=== PATIENT | male | born 1960 | race Caucasian/White ===

== ENCOUNTER 2018-02-05 17:01 | Observation (INO) | payer OTHER ==
[2018-02-05] MEDS: ENOXAPARIN SODIUM SQ SCH (18:35)
[2018-02-05 18:57] LABS: Hematocrit 41.7 % (42-50); Hemoglobin 14.4 gm/dl (12.5-18.0); Mean Corpuscular Hemoglobin 30.4 pg (26-32); Mean Corpuscular Hgb Concent. 34.5 g/dl (32-36); Mean Platelet Volume 9.8 fl (6-9.5); Platelet Count 187 K/mm3 (150-450); Red Blood Count 4.74 M/mm3 (4.1-5.6); Red Cell Distribution Width 13.2 % (11.5-14.0); White Blood Count 10.7 K/mm3 (4.0-10.5)
[2018-02-05 19:12] LABS: INR 1.12 (0.8-3.0)
[2018-02-05 19:17] LABS: ALBUMIN 4.2 g/dL (3.5-5.0); ALKALINE PHOSPHATASE 64 U/L (38-126); ANION GAP 15.8 MEQ/L (5-15); BLOOD UREA NITROGEN 16 mg/dL (9-20); CHLORIDE 100 mmol/L (98-107); Calcium 9.3 mg/dL (8.4-10.2); Carbon Dioxide 28 mmol/L (22-30); Glucose 170 mg/dL (74-106); Potassium 3.9 mmol/L (3.5-5.1); SGOT/AST 20 U/L (17-59); SGPT/ALT 29 U/L (0-50); SODIUM 140 mmol/L (137-145); Total Protein 7.2 g/dL (6.3-8.2)
[2018-02-05] MEDS: TYLENOL 325 MG PO PRN (20:02)
[2018-02-05] MEDS: NovoLOG Insulin SQ PRN (21:24)
[2018-02-06 04:02] VITALS: O2SAT 92
[2018-02-06] MEDS: TYLENOL 325 MG PO PRN (04:04)
[2018-02-06] MEDS ORDERED: PROVENTIL COMMON CANISTER IH PRN (07:00)
[2018-02-06] MEDS ORDERED: Advair Hfa 230/21 Mcg COMMON CANISTER IH SCH (07:00)
[2018-02-06] MEDS ORDERED: Spiriva 18 Mcg/Cap Inhaler IH ONE (07:03)
[2018-02-06 07:16] VITALS: PULSE 77
[2018-02-06] MEDS ORDERED: Glucotrol 5 MG PO SCH (07:30)
[2018-02-06] MEDS ORDERED: Glucotrol 10 MG PO SCH (07:30)
[2018-02-06 07:33] VITALS: BP 123/58
[2018-02-06] MEDS: NovoLOG Insulin SQ PRN (07:50)
--- NOTE | 2018-02-06 08:33 | XRAY ---
Indication: Right leg pain for days. Two-dimensional sonogram and color Doppler imaging of the major venous vessels of the right leg was performed. Comparison: None There is nonoccluding thrombosis in the peroneal vein. Additional thrombi seen in the greater saphenous vein below the knee. No thrombus seen in the remaining deep venous vessels of the right leg. Patent veins demonstrate normal compressibility and normal venous waveforms. Impression: Nonoccluding DVT in the peroneal vein. Also thrombi in the greater saphenous vein. Comment: Preliminary report was given.
[2018-02-06] MEDS: ENOXAPARIN SODIUM SQ SCH (09:21)
[2018-02-06] MEDS ORDERED: Protonix 40MG Tablet PO SCH (10:00)
[2018-02-06] MEDS ORDERED: Januvia 50 MG PO SCH (10:00)
[2018-02-06] MEDS ORDERED: Zestril 20 MG PO SCH (10:00)
[2018-02-06] MEDS ORDERED: hydroDIURIL 25 MG PO SCH (10:00)
[2018-02-06] MEDS ORDERED: ZOCOR 20MG PO SCH (10:00)
[2018-02-06] MEDS ORDERED: Spiriva 18 Mcg/Cap Inhaler IH SCH (10:00)
[2018-02-06] MEDS ORDERED: NON-FORMULARY ITEM (Lisinopril/Hydrochlorothiazide [Lisinopril-Hctz 20-12.5 Mg Tab] 1 TAB) PO SCH (10:00)
[2018-02-06] MEDS ORDERED: Singulair 10 MG PO SCH (10:00)
--- NOTE | 2018-02-07 10:43 | SSS ---
ADMISSION DIAGNOSES 1) Right lower extremity distal deep venous thrombosis. 2) Superficial venous thrombosis of right lower extremity. 3) Chronic obstructive pulmonary disease. 4) Diabetes mellitus type 2. DISCHARGE DIAGNOSES: 1) RIGHT LOWER EXTREMITY DISTAL DEEP VENOUS THROMBOSIS. 2) SUPERFICIAL VENOUS THROMBOSIS OF RIGHT LOWER EXTREMITY. 3) CHRONIC OBSTRUCTIVE PULMONARY DISEASE. 4) DIABETES MELLITUS TYPE 2. HISTORY OF PRESENT ILLNESS: This is a 57 year old patient who presented to the clinic on 02/05/2018 complaining of swelling and right lower limb pain. He was sent over to the hospital to have a Doppler done and was found to have a distal deep venous thrombosis of his right lower extremity as well as superficial venous thrombosis as well. He had reported that he had leg swelling that started two weeks ago but then this past Monday and Monday it had gotten red. He had multiple flea bites on his lower extremity about three weeks ago. He has not had any prolonged car rides. No history of deep venous thrombosis or pulmonary embolism in the past. He reports his mother had a deep venous thrombosis in the past. He also had a cough for four weeks that was dry and nonproductive. PAST MEDICAL HISTORY: Chronic obstructive pulmonary disease although he has been a lifetime nonsmoker. Diabetes mellitus type 2 diagnosed in 2006. Hypertension. PAST SURGICAL HISTORY: Colonoscopy 2015 that was normal. Upper GI June [address] Crum that revealed chronic gastritis. REVIEW OF SYSTEMS: He denied any nausea or vomiting. No diarrhea. No chest pain. He has had some shortness of breath with exertion. He had headache last night he reports due to not drinking his coffee and not eating well yesterday. Otherwise review of systems is negative, MEDICATIONS: Advair Diskus 500/50 mg 1 puff twice a day, fluticasone 50 mcg 1 spray in each nostril daily, Glipizide 10 mg daily, Januvia 100 mg daily, lisinopril/hydrochlorothiazide 20/12.5 mg 1 tablet p.o. daily, Metformin 1,000 mg p.o. b.i.d., Singulair 10 mg daily, omeprazole 40 mg daily, Pravastatin 40 mg daily, Spiriva 1 puff daily, Ventolin 2 puffs every four hours as needed. ALLERGIES: NKDA. SOCIAL HISTORY: He is and lives with his . He denies any tobacco or alcohol use. FAMILY HISTORY: His mother had diabetes, glaucoma and history of deep venous thrombosis and his father had diabetes. PHYSICAL EXAMINATION: VITAL SIGNS: Temperature current 98.3F, temperature max 100.2F, heart rate 77 to 98 currently 77, respiratory rate 16 to 22, blood pressure 123 to 150 over 61 to 83, weight 126 kg. Oxygen saturation 92 to 97% on room air. GENERAL: The patient is a pleasant talkative man sitting up in no acute distress. CVS: He has a regular rate and rhythm. No murmurs, gallops or rubs. CHEST: Clear to auscultation without crackles. He had a few scattered wheezes, equal breath sounds. ABDOMEN: Soft, nontender, nondistended with normal bowel sounds. EXTREMITIES: His right lower leg was swollen with some mild erythema along his anterior tibia. He has a few healing insect bites. No open sores. Left lower extremity without any clubbing, cyanosis or edema. LABORATORY DATA AND TESTS: White blood cell count 10.7. Glucose 170. Otherwise BMP, CBC and international normalized ratio within normal limits. His venous Doppler was read as non-occluding deep venous thrombosis in the perineal vein and also thrombi in the greater saphenous vein. HOSPITAL COURSE: 1) DISTAL DEEP VENOUS THROMBOSIS OF RIGHT LOWER EXTREMITY: He was started on Lovenox 1 mg/kg subcutaneously every 12 hours. He received 2 doses of this. Discharge planning was consulted and his insurance did cover Xarelto so he was given a script for Xarelto 15 mg p.o. b.i.d. for 21 days to be followed 20 mg daily after that. He was instructed to start the Xarelto this evening. I had a lengthy discussion with him about anticoagulation including the risk and benefits of Xarelto versus Coumadin. The patient understands that with any anticoagulation he should not be climbing that there is a risk for GI bleeding or blood in the urine to go to the emergency room or come to the office right away if something like that would happen. The patient was aware that there is no direct reversal for Xarelto. I also discussed the risks and benefits of Coumadin and opted to try the Xarelto. I plan to refer him to drum reel cutter as an outpatient for testing for possible genetic causes. He began anticoagulation for three months. 2) SUPERFICIAL VENOUS THROMBOSIS OF RIGHT LOWER EXTREMITY: I believe this is what is causing the redness in the skin. It has improved some with anticoagulation. 3) CHRONIC OBSTRUCTIVE PULMONARY DISEASE: This was stable during his hospitalization and he reports he is breathing easily at the time of discharge. 4) DIABETES MELLITUS TYPE 2: He was continued on all of his home medications except Metformin during his hospital stay but this was resumed at discharge. DISPOSITION: The patient was discharged to home in good condition. DISCHARGE MEDICATIONS: Please see the discharge order. FOLLOW UP: He is to follow up with me in the clinic in one week.
== END 2018-02-06 10:43 | disposition home or self-care (01) ==
LOC: LAB 17:01 → MED SURG 17:52
PROVIDERS: ADMIT Internal Medicine; ATTEND Internal Medicine
DX: I82.4Z1 Acute embolism and thrombosis of unspecified deep veins of right distal lower extremity (principal); J44.9 Chronic obstructive pulmonary disease, unspecified; E11.9 Type 2 diabetes mellitus without complications; Z79.84 Long term (current) use of oral hypoglycemic drugs; Z79.899 Other long term (current) drug therapy
CPT/HCPCS: 36415; 80053; 85027; 85610; 93268; 93971; 94150; 94640; 94760; J1650; A9270-GY; G0378

== ENCOUNTER 2019-03-23 17:28 | Emergency (ER) | payer OTHER ==
--- NOTE | 2019-03-23 17:33 | ERPHSYRPT ---
- History of Present Illness Time Seen by Provider: 03/23/19 17:32 Source: patient, family Exam Limitations: no limitations Physician History: 58 y/o diabetic, obese white male on xarelto for tx of rle dvt in the past, presents with swelling, tenderness and redness left knee. pt did injure his left hallman this week. pt denies soa and denies cp. Method of Injury: fell Occurred: last week Quality: aching Severity of Pain-Max: mild Severity of Pain-Current: mild Lower Extremities Pain: leg: left Modifying Factors: Improves With: movement Allergies/Adverse Reactions: No Known Drug Allergies Allergy (Verified 03/23/19 17:52) Home Medications: Glipizide 10 mg [Glucotrol 10 MG] 10 mg PO DAILY 12/25/14 [History] Metformin HCl 500 mg [Glucophage 500 MG] 1,000 mg PO BID 12/25/14 [History ] Albuterol Sulfate [Proventil Hfa] 2 puff IH Q4HPRN PRN 01/02/15 [History] Fluticasone/Salmeterol [Advair 250-50 Diskus] 1 puff IH DAILY 01/02/15 [History] Lisinopril/Hydrochlorothiazide [Lisinopril-Hctz 20-12.5 mg Tab] 1 tab PO DAILY 02/05/18 [History] Montelukast Sodium 10 mg [Singulair 10 MG] 10 mg PO DAILY 02/05/18 [History] Omeprazole 20 MG [Prilosec 20 mg] 40 mg PO BID 02/05/18 [History] Pravastatin Sodium 40 mg PO DAILY 02/05/18 [History] Sitagliptin Phosphate 50 MG [Januvia 50 MG] 100 mg PO DAILY 02/05/18 [ History] Tiotropium [place] Inhaler [Spiriva 18 Mcg/Cap Inhaler] 1 puff IH DAILY [History] - Review of Systems Constitutional: No Symptoms Eyes: No Symptoms Ears, Nose, & Throat: No Symptoms Respiratory: No Symptoms Cardiac: No Symptoms Abdominal/Gastrointestinal: No Symptoms Genitourinary Symptoms: No Symptoms Musculoskeletal: Joint Redness, Joint Pain, Joint Swelling Skin: No Symptoms Neurological: No Symptoms Psychological: No Symptoms Endocrine: No Symptoms Hematologic/Lymphatic: No Symptoms Immunological/Allergic: No Symptoms All Other Systems: Reviewed and Negative - Past Medical History Neurological History: No Pertinent History ENT History: No Pertinent History Cardiac History: Hypertension Respiratory History: Asthma Endocrine Medical History: Diabetes Type II Musculoskeletal History: No Pertinent History GI Medical History: No Pertinent History History: No Pertinent History Psycho-Social History: No Pertinent History Male Reproductive Disorders: No Pertinent History - Past Surgical History Past Surgical History: Yes Neuro Surgical History: No Pertinent History Cardiac: No Pertinent History Respiratory: No Pertinent History Gastrointestinal: No Pertinent History Genitourinary: No Pertinent History Musculoskeletal: No Pertinent History Male Surgical History: No Pertinent History Other Surgical History: tonsil - Social History Smoking Status: Never smoker Exposure to second hand smoke: No Drug Use: none - Nursing Vital Signs Nursing Vital Signs: Initial Vital Signs Temperature 98.3 F 03/23/19 17:40 Pulse Rate 73 03/23/19 17:40 Respiratory Rate 20 03/23/19 17:40 Blood Pressure 175/96 03/23/19 17:40 O2 Sat by Pulse Oximetry 95 03/23/19 17:40 Pain Scale Pain Intensity 7 - Physical Exam General Appearance: no apparent distress Eyes, Ears, Nose, Throat Exam: normal ENT inspection, moist mucous membranes Neck Exam: normal inspection, non-tender, supple, full range of motion Cardiovascular/Respiratory Exam: chest non-tender Gastrointestinal/Abdominal Exam: non-tender Back Exam: normal inspection, normal range of motion, No CVA tenderness, No vertebral tenderness Hips Exam: bilateral: non-tender, normal inspection, normal range of motion, no evidence of injury Legs Exam: right leg: non-tender, normal inspection, normal range of motion, no evidence of injury, left leg: soft tissue tenderness, swelling, other ( pretibial eschar) Knees Exam: right knee: non-tender, normal inspection, normal range of motion, no evidence of injury, left knee: soft tissue tenderness, swelling Ankle Exam: bilateral ankle: non-tender, normal inspection, normal range of motion, no evidence of injury Foot Exam: bilateral foot: non-tender, normal inspection, normal range of motion , no evidence of injury Neuro/Tendon Exam: normal sensation, normal motor functions, normal tendon functions, responds to pain Mental Status Exam: alert, oriented x 3, cooperative Skin Exam: other (mild redness left ant knee ) SpO2 Interpretation: normal O2 Delivery: Room Air Ordered Tests: Active Orders 24 hr Category Date Time Status KNEE (3 VIEWS) Stat Exams 03/23/19 18:33 Ordered Medication Summary Discontinued Medications Generic Name Dose Route Start Last Admin Trade Name Ollie PRN Reason Stop Dose Admin Ceftriaxone Sodium 1,000 mg 03/23/19 18:32 Rocephin 1000 Mg Inj IM 03/23/19 18:33 STAT ONE Trimethoprim/Sulfamethoxazole 1 tab 03/23/19 18:33 Bactrim Ds Tablet PO 03/23/19 18:34 STAT ONE - Progress Progress: re-examined Progress Note: 03/23/19 18:29 pt, spouse and myself had a long discussion regarding tx plan. i dx pt with ant left knee cellulitis. pt will receive rocephin im injection and oral bactrim ds. however, pt and spouse would like to have an xray of left knee and evaluation for dvt in left leg. pt is anticoagulated on xarelto for tx and prevention of dvt. will order outpt left lower ext venous doppler for 03/25/19. they agree with this plan. 03/23/19 18:56 xray left knee-no acute fx or dislocation Counseled pt/family regarding: diagnosis, need for follow-up, rad results - Departure Departure Disposition: Home Clinical Impression: Cellulitis Condition: Stable Critical Care Time: No Referrals: PARISH COLLAZO [Primary Care Provider] - Additional Instructions: take medications as prescribed. keep appointment on Monday March 25, 2019 for venous doppler of left leg. Prescriptions: Smz/Tmp Ds Tablet [Bactrim Ds Tablet] 1 udtab PO BID #14 tablet
[2019-03-23] MEDS ORDERED: Rocephin 1000 MG INJ IM ONE (18:32)
[2019-03-23] MEDS ORDERED: BACTRIM DS TABLET PO ONE ×2 (18:33→18:57)
[2019-03-23] MEDS ORDERED: Rocephin 1000 MG INJ ONE (18:57)
[2019-03-23] MEDS ORDERED: XYLOCAINE 1% HCL 20 ML MDV ONE (18:57)
[2019-03-23] MEDS ORDERED: NORCO 5/325 MG PO ONE (19:24)
[2019-03-23] MEDS ORDERED: NORCO 5/325 MG ONE (19:26)
[2019-03-23 19:31] VITALS: PULSE 70
[2019-03-23 19:33] VITALS: BP 172/88; O2SAT 98
--- NOTE | 2019-03-24 08:44 | XRAY ---
Indication: Pain and swelling following injury. Comparison: None 3 views of the left knee demonstrates anterior soft tissue swelling, mild medial joint space narrowing, and tiny anterior lower leg soft tissue calcified granulomas. No other bony, articular, or soft tissue abnormalities.
== END 2019-03-23 19:32 | disposition home or self-care (01) ==
LOC: ED 17:28
DX: L03.116 Cellulitis of left lower limb (principal); Z86.718 Personal history of other venous thrombosis and embolism; Z79.01 Long term (current) use of anticoagulants; E11.9 Type 2 diabetes mellitus without complications; Z79.4 Long term (current) use of insulin; S89.92XA Unspecified injury of left lower leg, initial encounter; W19.XXXA Unspecified fall, initial encounter
CPT/HCPCS: 73562; 96372; 99284; J0696; A9270-GY

== ENCOUNTER 2023-01-11 08:04 | Emergency (ER) | payer OTHER ==
--- NOTE | 2023-01-11 08:26 | ERPHSYRPT ---
- History of Present Illness Time Seen by Provider: 01/11/23 08:24 Source: patient Exam Limitations: no limitations Patient Subjective Stated Complaint: pt here for a food bolus, he states he as pot roast stuck since last night, Triage Nursing Assessment: pt alert, walked in, resp easy, skin w/d/p, no drooling, able to hold fluids well Physician History: Patient is a 62-year-old male presents to our ED for evaluation of food bolus stuck in his esophagus. Patient states this is a second episode. Patient had a similar episode last month however he was able to pass the bolus. Patient was having a pot roast last night. Patient feels a pot roast got stuck in his esophagus. Patient has been unable to pass it. Patient feeling a constant pressure in his chest. Patient states he is uncomfortable. Patient unable to tolerate fluids. Patient states the fluids come right up. Patient states he feels very uncomfortable. Symptoms are constant. Symptoms are moderate in intensity. No specific worsening improving factors. Patient voices no other complaints or concerns at this time. Portions of this note were created with voice recognition technology. There may be grammatical, spelling, punctuation or sound alike errors Timing/Duration: yesterday Severity: moderate Associated Symptoms: denies symptoms Allergies/Adverse Reactions: No Known Drug Allergies Allergy (Verified 01/11/23 08:11) Home Medications: Glipizide 10 mg [Glucotrol 10 MG] 10 mg PO DAILY 12/25/14 [History] Metformin HCl 500 mg [Glucophage 500 MG] 1,000 mg PO BID 12/25/14 [History] Albuterol Sulfate [Proventil Hfa] 2 puff IH Q4HPRN PRN 01/02/15 [History] Fluticasone/Salmeterol [Advair 250-50 Diskus] 1 puff IH DAILY 01/02/15 [History] Lisinopril/Hydrochlorothiazide [Lisinopril-Hctz 20-12.5 mg Tab] 1 tab PO DAILY 02/05/18 [History] Montelukast Sodium 10 mg [Singulair 10 MG] 10 mg PO DAILY 02/05/18 [History] Omeprazole 20 MG [Prilosec 20 mg] 40 mg PO BID 02/05/18 [History] Pravastatin Sodium 40 mg PO DAILY 02/05/18 [History] Fluticasone/Vilanterol [Breo Ellipta 200-25 Mcg INH] 1 each IH 03/11/22 [History] Hx Tetanus, Diphtheria Vaccination/Date Given: Yes Hx Influenza Vaccination/Date Given: Yes Hx Pneumococcal Vaccination/Date Given: Yes Immunizations Up to Date: Yes Travel Risk - International Travel Have you traveled outside of the country in past 3 weeks: No - Coronavirus Screening Are you exhibiting any of the following symptoms?: No Close contact with a COVID-19 positive Pt in past 14-21 Days: No - Vaccine Status Have you recieved a Covid-19 vaccination: Yes 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 Dates if Unknown: ? - Review of Systems Constitutional: No Symptoms, No Fever, No Chills Eyes: No Symptoms Ears, Nose, & Throat: No Symptoms Respiratory: No Symptoms, No Cough, No Dyspnea Cardiac: No Symptoms, No Chest Pain, No Edema, No Syncope Abdominal/Gastrointestinal: No Symptoms, No Abdominal Pain, No Nausea, No Vomiting, No Diarrhea Genitourinary Symptoms: No Symptoms, No Dysuria Musculoskeletal: No Symptoms, No Back Pain, No Neck Pain Skin: No Symptoms, No Rash Neurological: No Symptoms, No Dizziness, No Focal Weakness, No Sensory Changes Psychological: No Symptoms Endocrine: No Symptoms Hematologic/Lymphatic: No Symptoms Immunological/Allergic: No Symptoms All Other Systems: Reviewed and Negative - Past Medical History Neurological History: No Pertinent History ENT History: No Pertinent History Cardiac History: Hypertension Respiratory History: Asthma Endocrine Medical History: Diabetes Type II Musculoskeletal History: No Pertinent History GI Medical History: No Pertinent History History: No Pertinent History Psycho-Social History: No Pertinent History Male Reproductive Disorders: No Pertinent History Other Medical History: hx DVT right leg - Past Surgical History Past Surgical History: Yes Neuro Surgical History: No Pertinent History Cardiac: No Pertinent History Respiratory: No Pertinent History Gastrointestinal: No Pertinent History Genitourinary: No Pertinent History Musculoskeletal: No Pertinent History Male Surgical History: No Pertinent History Other Surgical History: tonsil - Social History Smoking Status: Never smoker Exposure to second hand smoke: No Drug Use: none Patient Lives Alone: No - Nursing Vital Signs Nursing Vital Signs: Initial Vital Signs Temperature 97.2 F 01/11/23 08:13 Pulse Rate 80 04/05/23 08:13 Respiratory Rate 18 01/11/23 08:13 Blood Pressure 162/86 01/11/23 08:13 O2 Sat by Pulse Oximetry 96 01/11/23 08:13 Pain Scale Pain Intensity 0 - Physical Exam General Appearance: no apparent distress, alert Eye Exam: PERRL/EOMI, eyes nml inspection Ears, Nose, Throat Exam: normal ENT inspection, TMs normal, pharynx normal, moist mucous membranes Neck Exam: normal inspection, non-tender, supple, full range of motion Respiratory Exam: normal breath sounds, lungs clear, airway intact, No respiratory distress Cardiovascular Exam: regular rate/rhythm, normal heart sounds, normal peripheral pulses Gastrointestinal/Abdomen Exam: soft, normal bowel sounds, No tenderness, No mass Back Exam: normal inspection, normal range of motion, No CVA tenderness, No vertebral tenderness Extremity Exam: normal inspection, normal range of motion, pelvis stable Neurologic Exam: alert, oriented x 3, cooperative, normal mood/affect, nml cerebellar function, nml station & gait, sensation nml, No motor deficits Skin Exam: normal color, warm, dry, No rash Lymphatic Exam: No adenopathy SpO2 Interpretation: normal SpO2: 96 O2 Delivery: Room Air - Course Nursing assessment & vital signs reviewed: Yes EKG Interpreted by Me: RATE (84), Sinus Rhythm, Left [place] Deviation, NORMAL INT ERVALS - Radiology Exams Chest X-ray Interpretation: Teleradiologist Report (Normal heart lungs and bony thorax. Degenerative changes observed) Ordered Tests: Active Orders 24 hr Category Date Time Status [employer] Dealer STAT Care 01/11/23 08:20 Active EKG-ER Only STAT Care 01/11/23 08:20 Active IV Insertion STAT Care 01/11/23 08:20 Active Pulse Oximetry (ED) STAT Care 01/11/23 08:20 Active CHEST 1 VIEW (PORTABLE) Stat Exams 01/11/23 08:20 Completed CBC W DIFF Stat Lab 01/11/23 08:15 Completed CMP Stat Lab 01/11/23 08:15 Completed TROPONIN Q4H Lab 01/11/23 08:15 Completed TROPONIN Q4H Lab 01/11/23 12:30 Ordered TROPONIN Q4H Lab 01/11/23 16:30 Ordered Medication Summary Discontinued Medications Generic Name Dose Route Start Last Admin Trade Name Freq PRN Reason Stop Dose Admin Dexamethasone Sodium Phosphate Confirm 01/11/23 09:28 Dexamethasone Sod Phosphate 4 Mg/Ml Ml Administered 01/11/23 09:29 Dose 4 mg .ROUTE .STK-MED ONE Fentanyl Citrate Confirm 01/11/23 09:30 Fentanyl Citrate 100 Mcg/2 Ml* Vial Administered 01/11/23 09:31 Dose 100 mcg .ROUTE .STK-MED ONE Glucagon 1 mg 01/11/23 08:45 01/11/23 08:44 Glucagon 1 Mg/Vial Vial IV 01/11/23 08:46 1 mg NOW ONE Administration Glucagon Confirm 01/11/23 08:42 Glucagon 1 Mg/Vial Vial Administered 01/11/23 08:43 Dose 1 mg .ROUTE .STK-MED ONE Lactated Ringer's Confirm 01/11/23 09:34 Lactated Ringers Administered 01/11/23 09:35 Dose 1,000 mls @ ud IV .STK-MED ONE Lidocaine HCl Confirm 01/11/23 09:28 Lidocaine - Mpf 2% 5 Ml Vial Administered 01/11/23 09:29 Dose 5 ml .ROUTE .STK-MED ONE Ondansetron HCl Confirm 01/11/23 09:28 Ondansetron Hcl 4 Mg/2 Ml Vial Administered 01/11/23 09:29 Dose 4 mg .ROUTE .STK-MED ONE Propofol Confirm 01/11/23 09:28 Propofol 10 Mg/Ml 20ml Vial Administered 01/11/23 09:29 Dose 200 mg IV .STK-MED ONE Sterile Water Confirm 01/11/23 08:43 Water For Injection,Sterile 10 Ml Vial Administered 01/11/23 08:44 Dose 10 ml IJ .STK-MED ONE Succinylcholine Chloride Confirm 01/11/23 09:28 Succinylcholine Chloride 200mg/10 Ml Vial Administered 01/11/23 09:29 Dose 120 mg .ROUTE .STK-MED ONE Lab/Rad Data: Laboratory Result Diagrams 01/11/23 08:15 01/11/23 08:15 Laboratory Results 01/11/23 01/11/23 01/11/23 Range/Units 08:15 08:15 08:15 WBC 9.2 (4.0-10.5) x10^3/uL RBC 4.91 (4.1-5.6) x10^6/uL Hgb 14.9 (12.5-18.0) g/dL Hct 43.6 (42-50) % MCV 88.8 (78-100) fL MCH 30.3 (26-32) pg MCHC 34.2 (32-36) g/dL RDW 12.6 (11.5-14.0) % Plt Count 222 (150-450) x10^3/uL MPV 10.0 (7.5-11.0) fL Gran % 70.1 H (36.0-66.0) % Immature Gran % (Auto) 0.3 (0.00-0.4) % Nucleat RBC Rel Count 0.0 (0.00-0.1) % Eos # (Auto) 0.32 (0-0.5) x10^3/uL Immature Gran # (Auto) 0.03 (0.00-0.03) x10^3u/L Absolute Lymphs (auto) 1.75 (1.0-4.6) x10^3/uL Absolute Monos (auto) 0.61 (0.0-1.3) x10^3/uL Absolute Nucleated RBC 0.00 (0.00-0.01) x10^3u/L Lymphocytes % 19.0 L (24.0-44.0) % Monocytes % 6.6 (0.0-12.0) % Eosinophils % 3.5 (0.00-5.0) % Basophils % 0.5 (0.0-0.4) % Absolute Granulocytes 6.47 (1.4-6.9) x10^3/uL Basophils # 0.05 (0-0.4) x10^3/uL Sodium 141 (137-145) mmol/L Potassium 4.4 (3.5-5.1) mmol/L Chloride 104 (98-107) mmol/L Carbon Dioxide 25 (22-30) mmol/L Anion Gap 15.5 H (5-15) MEQ/L BUN 19 (9-20) mg/dL Creatinine 0.83 (0.66-1.25) mg/dL Estimated GFR > 60.0 ML/MIN Glucose 209 H (74-106) mg/dL Calcium 8.9 (8.4-10.2) mg/dL Total Bilirubin 1.20 (0.2-1.3) mg/dL AST 41 (17-59) U/L ALT 36 (0-50) U/L Alkaline Phosphatase 52 (38-126) U/L Troponin I < 0.012 (0.000-0.034) ng/mL Serum Total Protein 7.5 (6.3-8.2) g/dL Albumin 4.5 (3.5-5.0) g/dL - Progress Progress: improved Progress Note: Case discussed with Dr. Cobos who states he will plan on taking patient to the OR today for EGD to retrieve and diagnose the cause for the food impaction. 01/11/23 08:42 Patient reassessed. He is stable. We administered a dose of glucagon. However patient still has not passed the food bolus. Mild hyperglycemia. Labs otherwise essentially normal. EKG normal sinus rhythm. No acute or ischemic changes. Troponin negative. Patient will be taken to the OR. Other test included CBC CMP COVID troponin. Glucagon administered as therapy however fluid bolus not passed. Portions of this note were created with voice recognition technology. There may be grammatical, spelling, punctuation or sound alike errors 62-year-old male presents to our ED for evaluation of food impaction. Patient unable to pass the food bolus. Complexity of problem addressed is moderate. Acute food bolus complicated with inability to tolerate oral intake. No critical care time. Complexity of data reviewed and analyzed is moderate. Test ordered. Test results reviewed. Patient served as independent historian. Management discussed with Dr. Cobos of general surgery. Patient will be taken to the OR for an EGD to perform food bolus retrieval as well as underlying diagnosis causing food impaction Risk of complication and or risk morbidity/mortality of patient management is moderate. Surgical decision made. Patient will go to the OR for a procedure. Patient will be discharged to the operating room. Plan of care made based on shared decision-making model. Vital stable. Patient voices no other complaints or concerns at this time. Portions of this note were created with voice recognition technology. There may be grammatical, spelling, punctuation or sound alike errors 01/11/23 09:39 Counseled pt/family regarding: lab results - Departure Departure Disposition: Release to OR/[facility] [place] Clinical Impression: Food impaction of esophagus Condition: Stable Critical Care Time: No Referrals: SHELLEY,VINNIE, TRAFFIC ROUTING ENGINEER [Primary Care Provider] - Follow up/PCP as directed
[2023-01-11 08:35] LABS: Absolute Neutrophil Ct (ANC) 6.47 x10^3/uL (1.4-6.9); BASOPHIL % 0.5 % (0.0-0.4); Basophil (Absolute #) 0.05 x10^3/uL (0-0.4); Eosinophil % 3.5 % (0.00-5.0); Eosinophil (Absolute #) 0.32 x10^3/uL (0-0.5); Hematocrit 43.6 % (42-50); Hemoglobin 14.9 g/dL (12.5-18.0); IMMATURE GRAN # 0.03 x10^3u/L (0.00-0.03); IMMATURE GRAN % 0.3 % (0.00-0.4); Lymphocyte (Absolute #) 1.75 x10^3/uL (1.0-4.6); Mean Cell Volume 88.8 fL (78-100); Mean Corpuscular Hemoglobin 30.3 pg (26-32); Mean Corpuscular Hgb Concent. 34.2 g/dL (32-36); Monocyte (Absolute #) 0.61 x10^3/uL (0.0-1.3); Monocytes % 6.6 % (0.0-12.0); Neutrophil % 70.1 % (36.0-66.0); Platelet Count 222 x10^3/uL (150-450); Red Blood Count 4.91 x10^6/uL (4.1-5.6); Red Cell Distribution Width 12.6 % (11.5-14.0); White Blood Count 9.2 x10^3/uL (4.0-10.5)
[2023-01-11] MEDS ORDERED: GlucaGen 1 MG ONE (08:42)
[2023-01-11] MEDS ORDERED: Sterile H2O 10 ml IJ ONE (08:43)
[2023-01-11 08:45] LABS: ALBUMIN 4.5 g/dL (3.5-5.0); ALKALINE PHOSPHATASE 52 U/L (38-126); ANION GAP 15.5 MEQ/L (5-15); BLOOD UREA NITROGEN 19 mg/dL (9-20); CHLORIDE 104 mmol/L (98-107); Calcium 8.9 mg/dL (8.4-10.2); Carbon Dioxide 25 mmol/L (22-30); Creatinine 1 0.83 mg/dL (0.66-1.25); EST GLOMERULAR FILTRATION RATE > 60.0 ML/MIN; Glucose 209 mg/dL (74-106); Potassium 4.4 mmol/L (3.5-5.1); SGOT/AST 41 U/L (17-59); SGPT/ALT 36 U/L (0-50); SODIUM 141 mmol/L (137-145); Total Protein 7.5 g/dL (6.3-8.2)
[2023-01-11] MEDS ORDERED: GlucaGen 1 MG IV ONE (08:45)
[2023-01-11 09:12] VITALS: BP 153/88
--- NOTE | 2023-01-11 09:21 | XRAY ---
Indication: Chest pain. Comparison: None Portable chest demonstrates normal heart and lungs. Bony thorax intact with mild degenerative changes.
[2023-01-11] MEDS ORDERED: Xylocaine-Mpf 2% 5 Ml Vial ONE (09:28)
[2023-01-11] MEDS ORDERED: DIPRIVAN 200 MG/20 ML IV ONE (09:28)
[2023-01-11] MEDS ORDERED: Zofran 4 MG/2 ML VIAL ONE ×2 (09:28→12:46)
[2023-01-11] MEDS ORDERED: Decadron 4 MG INJ ONE (09:28)
[2023-01-11] MEDS ORDERED: Quelicin Fliptop 200 MG/10 ML ONE ×2 (09:28→09:53)
[2023-01-11] MEDS ORDERED: SUBLIMAZE 100 MCG/2 ML ONE ×2 (09:30→11:19)
[2023-01-11] MEDS ORDERED: Lactated Ringers 1,000 ML IV ONE ×2 (09:34→10:37)
[2023-01-11 09:55] LABS: INFLUENZA A NEGATIVE (NEGATIVE); INFLUENZA B NEGATIVE (NEGATIVE); RESPIRATORY SYNCTIAL VIRUS NEGATIVE (NEGATIVE); SARS-CoV-2 Xpert Express NEGATIVE (NEGATIVE)
[2023-01-11] MEDS ORDERED: Pre-Attached Lta Kit TP ONE (09:55)
[2023-01-11] MEDS ORDERED: Zemuron 100 MG/10 ML ONE ×2 (10:18→10:49)
[2023-01-11] MEDS ORDERED: BRIDION 200MG/2ML IV ONE (10:27)
[2023-01-11] MEDS ORDERED: PHENYLEPHRINE HCL ONE (10:28)
[2023-01-11] MEDS ORDERED: Ephedrine Sulfate 50 MG/ML ONE (10:28)
[2023-01-11] MEDS ORDERED: Proair Hfa MDI IH ONE (11:04)
[2023-01-11] MEDS ORDERED: Sodium Chloride 3 ML UD NEBULES IH ONE ×2 (11:50→11:54)
[2023-01-11] MEDS ORDERED: Xopenex 1.25 MG/0.5 ML UD NEBULE IH ONE (11:50)
[2023-01-11 11:57] VITALS: PULSE 96; O2SAT 90
[2023-01-11] MEDS ORDERED: Zofran 4 MG/2 ML VIAL IV ONE (12:45)
[2023-01-11] MEDS ORDERED: Reglan 10 MG/2 ML IV ONE (12:45)
[2023-01-11] MEDS ORDERED: Reglan 10 MG/2 ML ONE (12:46)
--- NOTE | 2023-01-11 14:26 | HP ---
CHIEF COMPLAINT: Food bolus impacted in the esophagus. HISTORY OF PRESENT ILLNESS: The patient is a 62-year-old male who presented to the emergency room complaining of some food bolus impacted in the lower esophagus. He has had this episode about a month ago which apparently passed but this time it is not passing and presented to the emergency room for evaluation. PAST MEDICAL HISTORY: Overall unremarkable except for some chronic gastroesophageal reflux disease. PAST SURGICAL HISTORY: Unremarkable. PHYSICAL EXAMINATION: He is alert and oriented. HEENT: Pupils are equal and normoreactive. NECK: Supple. COR: Regular rhythm. ABDOMEN: Soft and nontender. EXTREMITIES: Within normal limits and no pedal edema. IMPRESSION: Food bolus impacted in the esophagus. PLAN: Proceed with EGD with removal of the food bolus.
--- NOTE | 2023-01-11 14:43 | OP ---
SURGERY DATE/TIME: 01/11/2023 1005 PREOPERATIVE DIAGNOSIS: Food bolus impacted in the esophagus. POSTOPERATIVE DIAGNOSIS: Food bolus impacted in the esophagus. PROCEDURE: EGD with removal of foreign body consisting of a food bolus. SURGEON: Jonathan Chong M.D. ANESTHESIA: General. ESTIMATED BLOOD LOSS: Minimal COMPLICATION: None. DESCRIPTION OF PROCEDURE AND FINDINGS: The patient was taken to the endoscopy lab and was given general anesthesia with endotracheal tube in place. The scope was introduced and advanced down to the distal esophagus where a food bolus was seen impacted in the area. We considered removing the food bolus with the basket but unable to do that because it was quite firm so we tried to break it down in small pieces with a biopsy hook eventually multiple passes were needed to retrieve the majority of the food bolus until we were able to push it through into the stomach. After it was done then we passed the scope into the stomach, first and second portion of the duodenum. I did not see any ulcers. At this point using a balloon dilator we dilated the distal esophagus to 60 Setswana or 20 mm. Inspection after dilatation was normal with no active bleeding. The patient tolerated the procedure well.
== END 2023-01-11 10:00 | disposition home or self-care (01) ==
LOC: ED 08:04
DX: T18.128A Food in esophagus causing other injury, initial encounter (principal); R07.9 Chest pain, unspecified; E11.9 Type 2 diabetes mellitus without complications; I10 Essential (primary) hypertension; Z79.84 Long term (current) use of oral hypoglycemic drugs; Z79.899 Other long term (current) drug therapy
CPT/HCPCS: 00731; 0241U; 36000; 36415; 43247; 71045; 80053; 82947; 84484; 85025; 93005; 93041; 94640; 94760; 96374; 96375; 99140; 99284; C1726; J0330; J1100; J1610; J2370; J2405; J2704; J3010; J7614; A9270-GY

== ENCOUNTER 2024-03-08 05:54 | Day surgery (SDC) | payer OTHER ==
[2024-03-08 06:20] VITALS: RESP 16
[2024-03-08] MEDS: Lactated Ringers 1,000 ML IV SCH (07:27)
[2024-03-08] MEDS ORDERED: Xylocaine-Mpf 2% 5 Ml Vial ONE (07:31)
[2024-03-08] MEDS ORDERED: DIPRIVAN 200 MG/20 ML IV ONE ×2 (07:31→07:49)
[2024-03-08 08:40] VITALS: BP 116/70; PULSE 66; TEMP 96.8; O2SAT 99
[2024-03-08 09:02] LABS: Creatinine, Urine Random 116.1 mg/dl; Malb/Crea Ratio 15.5 (<30)
--- NOTE | 2024-03-08 09:19 | OP ---
SURGERY DATE/TIME: 03/08/2024 0733 PREOPERATIVE DIAGNOSIS: Screening exam. POSTOPERATIVE DIAGNOSIS: Mild diverticulosis otherwise normal exam. PROCEDURE: Colonoscopy. SURGEON: Dr. Lafleur. ANESTHESIA: Medications given by anesthesia department. HISTORY: The patient is a 63-year-old white male patient presenting now for colonoscopic evaluation for screening purposes. The patient was appraised of the risks of the procedure including the risk of perforation, phlebitis, untoward reaction to medication, bleeding and missed lesions. The patient verbalized his understanding and desired to have the procedure performed. DESCRIPTION OF PROCEDURE: The patient was given the medications by the anesthesia department. He had continuous pulse oximetry, ECG monitoring and intermittent blood pressure monitoring during the examination. He was placed in the left lateral decubitus position. Digital rectal examination was performed and revealed normal anal sphincter tone, no masses and a normal prostate. The flexible Olympus pediatric colonoscope was used to intubate the rectum. A view of the colon was developed sequentially to the cecum. Upon insertion and withdrawal was noted mild diverticulosis throughout the colon. No other mucosal lesions being encountered the scope was removed. The patient who tolerated the procedure well and sent to outpatient recovery in good condition. The prep was noted to be fair.
== END 2024-03-08 08:45 | disposition home or self-care (01) ==
LOC: SDC 05:54
PROVIDERS: ATTEND Family Medicine
DX: Z12.11 Encounter for screening for malignant neoplasm of colon (principal); K57.30 Diverticulosis of large intestine without perforation or abscess without bleeding; E11.9 Type 2 diabetes mellitus without complications
CPT/HCPCS: 36415; 82043; 82570; 82947; 83036; J2704

== ENCOUNTER 2025-07-02 12:15 | Emergency (ER) | payer OTHER ==
--- NOTE | 2025-07-02 12:30 | ERPHSYRPT ---
- History of Present Illness Time Seen by Provider: 07/02/25 12:20 Source: patient Physician History: Presents with a month of right upper quadrant and right sided pain. He reports he had an outpatient ultrasound done this week that showed gallstones. He was directed by his provider to come to the ER if he had increasing pain. He reports daily pain for approximately the last month with some increased earlier today while at work over the right upper quadrant and right flank. No vomiting. No fever. No urinary symptoms. Patient does report for the last week or week and a half he has had a hard stool and been constipated since he returned from a cruise. Denies any melena. Allergies/Adverse Reactions: No Known Drug Allergies Allergy (Verified 07/02/25 12:25) Home Medications: Metformin HCl 500 mg [Glucophage 500 MG] 500 mg PO BID 12/25/14 [History] Albuterol Sulfate [Proventil Hfa] 2 puff IH Q4HPRN PRN 01/02/15 [History] Lisinopril/Hydrochlorothiazide [Lisinopril-Hctz 20-12.5 mg Tab] 1 tab PO DAILY 02/05/18 [History] Montelukast Sodium 10 mg [Singulair 10 MG] 10 mg PO DAILY 02/05/18 [History] Omeprazole 20 MG [Prilosec 20 mg] 40 mg PO BID 02/05/18 [History] Pravastatin Sodium 40 mg PO DAILY 02/05/18 [History] Fluticasone/Vilanterol [Breo Ellipta 200-25 Mcg Inhalr] 1 each IH BID 03/11/22 [History] Amlodipine Besylate 5 mg [Norvasc 5 mg] 5 mg PO DAILY 03/06/24 [History] Empagliflozin [Jardiance] 25 mg PO DAILY 03/06/24 [History] Hx Tetanus, Diphtheria Vaccination/Date Given: Yes Hx Influenza Vaccination/Date Given: Yes Hx Pneumococcal Vaccination/Date Given: Yes Travel Risk - Emerging Infectious Disease Are you exhibiting symptoms associated with any current EIDs: No - Review of Systems Constitutional: No Fever, No Chills Eyes: No Symptoms Ears, Nose, & Throat: No Symptoms Respiratory: No Cough, No Dyspnea Cardiac: No Chest Pain, No Edema, No Syncope Abdominal/Gastrointestinal: Abdominal Pain, Other (Some mild radiation of the pain to the right flank), No Nausea, No Vomiting, No Diarrhea Genitourinary Symptoms: No Dysuria Musculoskeletal: No Back Pain, No Neck Pain Skin: No Rash Neurological: No Dizziness, No Focal Weakness, No Sensory Changes Psychological: No Symptoms Endocrine: No Symptoms All Other Systems: Reviewed and Negative - Past Medical History Pertinent Past Medical History: Yes Neurological History: No Pertinent History ENT History: No Pertinent History Cardiac History: Hypertension Respiratory History: Asthma Endocrine Medical History: Diabetes Type II Musculoskeletal History: No Pertinent History GI Medical History: No Pertinent History History: No Pertinent History Psycho-Social History: No Pertinent History Male Reproductive Disorders: No Pertinent History Other Medical History: hx DVT right leg - Past Surgical History Past Surgical History: Yes Neuro Surgical History: No Pertinent History Cardiac: No Pertinent History Respiratory: No Pertinent History Gastrointestinal: No Pertinent History Genitourinary: No Pertinent History Musculoskeletal: No Pertinent History Male Surgical History: No Pertinent History Other Surgical History: tonsil - Social History Smoking Status: Never smoker Exposure to second hand smoke: No - Nursing Vital Signs Nursing Vital Signs: Initial Vital Signs Temperature 97 F 07/02/25 12:15 Pulse Rate 86 07/02/25 12:15 Respiratory Rate 16 07/02/25 12:15 Blood Pressure 136/66 07/02/25 12:15 O2 Sat by Pulse Oximetry 99 07/02/25 12:15 Pain Scale Pain Intensity 7 - Physical Exam General Appearance: no apparent distress Respiratory Exam: normal breath sounds Cardiovascular Exam: regular rate/rhythm Gastrointestinal/Abdomen Exam: soft, other (Benign abdominal exam. Negative Orona sign. Has mild right upper quadrant tenderness to deep palpation only not localized. No CVA tenderness), No distention Neurologic Exam: alert, oriented x 3 Skin Exam: normal color SpO2 Interpretation: normal Ordered Tests: Active Orders 24 hr Category Date Time Status CBC W DIFF Stat Lab 07/02/25 12:35 Completed CMP Stat Lab 07/02/25 12:35 Completed LIPASE Stat Lab 07/02/25 12:35 Completed UA W/RFX UR CULTURE Stat Lab 07/02/25 12:46 Completed Medication Summary Discontinued Medications Generic Name Dose Route Start Last Admin Trade Name Freq PRN Reason Stop Dose Admin Ketorolac Tromethamine 15 mg 07/02/25 12:23 07/02/25 12:42 Ketorolac Tromethamine 30 Mg/Ml Inj IV 07/02/25 12:24 15 mg STAT ONE Administration Ketorolac Tromethamine Confirm 07/02/25 12:37 Ketorolac Tromethamine 30 Mg/Ml Inj Administered 07/02/25 12:38 Dose 30 mg .ROUTE .STK-MED ONE Lab/Rad Data: Laboratory Result Diagrams 07/02/25 12:35 07/02/25 12:35 Laboratory Results 07/02/25 07/02/25 07/02/25 Range/Units 12:46 12:35 12:35 WBC 8.0 (4.23-9.07) x10^3/uL RBC 4.98 (4.63-6.08) x10^6/uL Hgb 15.2 (13.7-17.5) g/dL Hct 45.0 (40.1-51.0) % MCV 90.4 (79.0-92.2) fL MCH 30.5 (25.7-32.2) pg MCHC 33.8 (32.3-36.5) g/dL RDW 13.3 (11.6-14.4) % Plt Count 200 (163-337) x10^3/uL MPV 9.4 (9.4-12.4) fL Gran % 70.1 H (34.0-67.9) % Immature Gran % (Auto) 0.2 (0.001-0.429) % Nucleat RBC Rel Count 0.0 (0.00-0.2) % Eos # (Auto) 0.15 (0.04-0.54) x10^3/uL Immature Gran # (Auto) 0.02 (0.001-0.031) x10^3u/L Absolute Lymphs (auto) 1.67 (1.32-3.57) x10^3/uL Absolute Monos (auto) 0.53 (0.30-0.82) x10^3/uL Absolute Nucleated RBC 0.00 (0.00-0.012) x10^3u/L Lymphocytes % 20.8 L (21.8-53.1) % Monocytes % 6.6 (5.3-12.2) % Eosinophils % 1.9 (0.8-7.0) % Basophils % 0.4 (0.2-1.2) % Absolute Granulocytes 5.61 H (1.78-5.38) x10^3/uL Basophils # 0.03 (0.01-0.08) x10^3/uL Sodium 139 (135-145) mmol/L Potassium 4.1 (3.5-5.1) mmol/L Chloride 105 (98-107) mmol/L Carbon Dioxide 26 (22-30) mmol/L Anion Gap 11.6 (5-15) MEQ/L BUN 10 (9-20) mg/dL Creatinine 0.83 (0.66-1.25) mg/dL Estimated GFR 98.3 ML/MIN Glucose 115 H (74-106) mg/dL Calcium 8.8 (8.4-10.2) mg/dL Total Bilirubin 0.70 (0.2-1.3) mg/dL AST 23 (17-59) U/L ALT 18 (0-50) U/L Alkaline Phosphatase 53 (38-126) U/L Serum Total Protein 6.8 (6.3-8.2) g/dL Albumin 4.3 (3.5-5.0) g/dL Lipase 35 (23-300) U/L Urine Color Yellow (Yellow) Urine Appearance Clear (Clear) Urine pH 6.5 (4.6-8.0) Ur Specific [place] >=1.030 A (1.005-1.030) Urine Protein Negative (Negative) Urine Glucose (UA) >=1000 A (Negative) mg/dL Urine Ketones Negative (Negative) Urine Blood Negative (Negative) Urine Nitrite Negative (Negative) Urine Bilirubin Negative (Negative) Urine Urobilinogen 1.0 A (0.2) mg/dL Ur Leukocyte Esterase Negative (Negative) U Hyaline Cast (Auto) NONE SEEN (0-2) /LPF Urine Microscopic RBC 0-2 (0-5) /HPF Urine Microscopic WBC 0-2 (0-5) /HPF Ur Epithelial Cells None Seen (None Seen) /HPF Urine Bacteria None Seen (None Seen) /HPF Urine Culture Reflexed NO (NO) Reviewed report - Progress Progress: improved Progress Note: 07/02/25 12:29 This is a 64-year-old male who presents with a month of right upper quadrant pain. He reports he had outpatient ultrasound with gallstones this week but had increasing pain prior to arrival. Benign abdominal exam with negative Orona sign and minimal right-sided abdominal discomfort to deep palpation only. Also reports seeing significant constipation over the last week. CBC chemistries lipase urinalysis ordered and IV Toradol given 07/02/25 13:35 Reviewed the patient's report gallbladder ultrasound that showed no wall thickening or fluid few small stones distended yeny patient's labs returned and they are essentially unremarkable. Urine is pending. Discussed care with Eliana Hawkins is also note with moderate constipation over a week will given medication for constipation and nausea. Reviewed avoid narcotics given his constipation issues and she will see him back to discuss referral to surgery. Return instructions discussed with patient - Departure Departure Disposition: Home Clinical Impression: Cholelithiasis, Constipation Condition: Good Critical Care Time: No Referrals: VINNIE HAWKINS NP [Primary Care Provider, [facility]] - Follow up/PCP as directed Instructions: Gallstones - ED discharge instructions Additional Instructions: Care was discussed with Eliana Hawkins practitioner who would like you to call to arrange follow-up this week. You take an outpatient stool softener such as docusate or senna to help with regular bowel movements. You are being written for medication for nausea. If you develop worsening symptoms such as fever, inability keep down fluids, worsening pain should be rechecked with your provider or return to the ER Prescriptions: Ondansetron ODT 4 MG [Zofran Odt 4 mg] 4 mg PO Q6H PRN PRN #10 tablet PRN Reason: Nausea
[2025-07-02 12:37] LABS: BASOPHIL % 0.4 % (0.2-1.2); Basophil (Absolute #) 0.03 x10^3/uL (0.01-0.08); Eosinophil (Absolute #) 0.15 x10^3/uL (0.04-0.54); Hematocrit 45.0 % (40.1-51.0); Hemoglobin 15.2 g/dL (13.7-17.5); IMMATURE GRAN # 0.02 x10^3u/L (0.001-0.031); IMMATURE GRAN % 0.2 % (0.001-0.429); Lymphocyte (Absolute #) 1.67 x10^3/uL (1.32-3.57); Mean Corpuscular Hemoglobin 30.5 pg (25.7-32.2); Mean Corpuscular Hgb Concent. 33.8 g/dL (32.3-36.5); Monocyte (Absolute #) 0.53 x10^3/uL (0.30-0.82); NUCLEATED RBC # 0.00 x10^3u/L (0.00-0.012); NUCLEATED RBC % 0.0 % (0.00-0.2); Platelet Count 200 x10^3/uL (163-337); Red Blood Count 4.98 x10^6/uL (4.63-6.08); White Blood Count 8.0 x10^3/uL (4.23-9.07)
[2025-07-02] MEDS ORDERED: TORAdol 30 mg Injection ONE (12:37)
[2025-07-02] MEDS: TORAdol 30 mg Injection IV ONE (12:42)
[2025-07-02 12:52] LABS: Calcium 8.8 mg/dL (8.4-10.2); Carbon Dioxide 26.0 mmol/L (22-30); Creatinine 1 0.83 mg/dL (0.66-1.25); EST GLOMERULAR FILTRATION RATE 98.3 ML/MIN; Glucose 115.0 mg/dL (74-106); Potassium 4.1 mmol/L (3.5-5.1); SGOT/AST 23.0 U/L (17-59); SGPT/ALT 18.0 U/L (0-50); Total Protein 6.8 g/dL (6.3-8.2)
[2025-07-02 13:35] LABS: Glucose, Urine >=1000 mg/dL (Negative); Protein,Urine Dip Negative (Negative); RBC 0-2 /HPF (0-5); WBC 0-2 /HPF (0-5)
[2025-07-02 13:41] VITALS: RESP 16; TEMP 97
[2025-07-02 13:42] VITALS: O2SAT 98
[2025-07-02 13:54] VITALS: BP 143/68; PULSE 78
== END 2025-07-02 13:55 | disposition home or self-care (01) ==
LOC: ED 12:15
DX: K80.20 Calculus of gallbladder without cholecystitis without obstruction (principal); K59.00 Constipation, unspecified; R10.11 Right upper quadrant pain; I10 Essential (primary) hypertension; E11.9 Type 2 diabetes mellitus without complications; Z79.84 Long term (current) use of oral hypoglycemic drugs; Z79.899 Other long term (current) drug therapy